=== PATIENT | male | born 1975 | race Hispanic/Latino ===

== ENCOUNTER 2017-06-04 15:27 | Emergency (ER) | payer BC, MEDICAID ==
--- OUTSIDE RECORDS SUMMARY | 2017-06-04 16:11 | XMS REPORT | Clinical Summary ---
:1975 Author Organization [employer] [place] [address] Care Team Providers Name Role Phone Unavailable Primary Care Provider Unavailable Source Comments This disclosure is being made pursuant to the [employer] program and maynot contain all information available regarding this patient.[employer] Allergies Not on File Current Medications Be aware that medications may not be up to date as of this document. Alwaysverify current medications with the patient. Not on file Active Problems Not on file Social History Tobacco Use Types Packs/Day Years Used Date Never Assessed Sex Assigned at Date Recorded Not on file Last Filed Vital Signs Not on file Plan of Treatment Health Maintenance Due Date Last Done Comments Retired-Pertussis Vaccine Adult 1992 Retired-Tetanus Vaccine Adult 1992 Retired-INFLUENZA VACCINE 07/01/2015 Results Not on filefrom Last 3 Months
[2017-06-04] MEDS ORDERED: DIPHTH,PERTUSS(ACELL),TET VAC 0.5 ML VIAL IM ONE ×2 (16:33→16:37)
--- NOTE | 2017-06-04 16:44 | ERNOTE ---
Medical Problem HPI - Narrative Date of Service: 06/04/17 - General Chief Complaint: Foreign Body Time Seen by Provider: 06/04/17 16:03 Source: patient Exam Limitations: no limitations - Immun/Allergies/Home Medications Immunizations: IMMUNIZATION HX Immunizations Up to Date Yes History of Influenza Vaccine Yes Hx Pneumococcal Vaccination Yes Allergies/Adverse Reactions: Allergies Penicillins Adverse Reaction (Verified 06/04/17 15:54) Home Medications: HOME MEDICATIONS Cephalexin Monohydrate [Keflex] 500 mg PO QID #40 cap 06/04/17 [Last Taken Unknown] Escitalopram Oxalate [Lexapro] 10 mg PO DAILY 06/04/17 [Last Taken Unknown] - History of Present History Narrative: Pt. comes in with c/o two fish hooks in his R lower leg when he was fishing with his brother. Pt. states that he tried to remove them himself with traction but was unable. Pt. denies any SOB, CP, NVD, fever, recent illness or fever. Pt. states tath last tetanus vaccine was over 10 years ago. Review of Systems - Review of Systems Constitutional: Present: no symptoms reported. Absent: recent illness, fever, chills, weakness, fatigue, malaise EYE: Present: no symptoms reported ENT: Present: no symptoms reported Respiratory: Present: no symptoms reported. Absent: shortness of breath, cough , wheezing Cardiology: Present: no symptoms reported. Absent: chest pain, palpitations, edema Gastrointestinal/Abdominal: Present: no symptoms reported Genitourinary: Present: no symptoms reported Musculoskeletal: Present: no symptoms reported. Absent: back pain, joint pain Skin: Present: other - fish hooks in R lower leg Neurological: Present: no symptoms reported. Absent: dizziness/light-headedness , weakness, numbness, tingling All Other Systems: All systems neg except as marked - Patient's Past Medical History Patient History - Medical: No pertinent hx Patient History - Cardiac/Respiratory: No pertinent hx Patient History - Cancer: No Hx of Cancer Patient History - Surgical Procedures: No surgical history Patient History - Other: None - Social History Living Situations: home Psych History: Hx of Anxiety, Hx of Depression Smoking Status: Never smoker Alcohol Use: none Drug Use: none - Immunizations Immunizations Up to Date: Yes Hx Pneumococcal Vaccination: Yes History of Influenza Vaccine: Yes Physical Exam - Physical Exam General Appearance: Present: wd/wn, alert, no apparent distress Head Exam: Present: normal inspection, no evidence of injury Eye Exam: Normal inspection: bilateral, PERRL: bilateral, EOMI: bilateral Respiratory: Present: no respiratory distress, normal breath sounds, no accessory muscle use, chest nontender, lungs clear Cardiovascular/Chest: Present: regular rate, rhythm, no murmur, normal peripheral pulses Back Exam: Present: normal inspection, normal range of motion, no CVA tenderness , no vertebral tenderness Extremity Exam: Present: normal inspection, non-tender, normal range of motion, no edema Neurological Exam: Present: alert, oriented, normal mood/affect, no motor/ sensory deficits Skin Exam: Present: normal color, warm/dry, other - fish hooks present in RLE superficial no erythema or edema noted ED Progress - Vital Signs Patient's Vital Signs:: I have reviewed the patient's vital signs. Vital Signs: Vital Signs 06/04/17 15:50 Temperature 36.6 C Pulse Rate 60 Respiratory 16 Rate Blood Pressure 110/79 - Progress/Reassessment Chief Complaint: Foreign Body Procedures Date and Time: 06/04/17 16:36 two barbed medium fish hooks superficial Location: R lower leg How removed: Forceps Complications: Pt snehal procedure well Departure - Departure Clinical Impression: Fish hook injury of left lower leg Qualifiers: Encounter type: initial encounter Qualified Code(s): S89.92XA - Unspecified injury of left lower leg, initial encounter Disposition: Home self-care Condition: Good Instructions: Sliver Removal, Care After Additional Instructions: Pleae apply bacitracin twice a day and take keflex starting tomorrow. Prescriptions: Cephalexin Monohydrate [Keflex] 500 mg PO QID #40 cap
[2017-06-04 16:45] VITALS: BP 124/83
== END 2017-06-04 16:49 | disposition home or self-care (01) ==
LOC: ER 15:27
DX: S80.851A Superficial foreign body, right lower leg, initial encounter (principal); Z23 Encounter for immunization; W45.8XXA Other foreign body or object entering through skin, initial encounter; Y93.89 Activity, other specified; F41.9 Anxiety disorder, unspecified; F32.9 Major depressive disorder, single episode, unspecified